=== PATIENT | female | born 1980 | race Caucasian/White ===

== ENCOUNTER → 2016-10-21 | Outpatient (CLI) | payer OTHER ==
[~2016-10-21] MED LIST: CARAFATE 1GM1 G PO; DEXILANT60 MG PO; DICLEGIS; ENDOMETRIN100 MG VG; ZOFRAN 4MG T4 MG/TAB PO
[2016-10-21 16:18] LABS: THYROID STIMULATING HORMONE 0.142 uIU/mL (0.465-4.680)
== END ==
LOC: EUO 15:09
DX: R94.6 Abnormal results of thyroid function studies (principal)

== ENCOUNTER → 2016-11-20 | Outpatient (REF) | LOC: WSOH 16:30 | DX: Z02.89 Encounter for other administrative examinations (principal) ==

== ENCOUNTER 2016-12-17 15:56 | Outpatient (CLI) | payer OTHER ==
[2016-12-17 17:09] LABS: THYROID STIMULATING HORMONE 0.651 uIU/mL (0.465-4.680)
== END 2016-12-17 16:31 | disposition home or self-care (01) ==
LOC: EUO 15:56 → COL.LAB 15:56 → EUO 16:31
PROVIDERS: Nurse Practitioner Family
DX: E05.90 Thyrotoxicosis, unspecified without thyrotoxic crisis or storm (principal); K90.41 Non-celiac gluten sensitivity